=== PATIENT | female | born 1985 | race Caucasian/White ===

== ENCOUNTER 2017-12-12 14:47 | Outpatient (CLI) | payer OTHER ==
[2017-12-12 15:16] VITALS: BP 142/90; PULSE 106; RESP 16; TEMP 98.4
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
== END 2017-12-12 16:00 | disposition home or self-care (01) ==
LOC: FBPOP 14:47
PROVIDERS: ATTEND Obstetrics & Gynecology
DX: O9A.213 Injury, poisoning and certain other consequences of external causes complicating pregnancy, third trimester (principal); S39.92XA Unspecified injury of lower back, initial encounter; Z3A.38 38 weeks gestation of pregnancy
CPT/HCPCS: 59025; G0463; 99213

== ENCOUNTER 2017-12-20 02:50 | Inpatient (IN) | payer OTHER ==
[2017-12-20] MEDS ORDERED: LACTATED RINGERS 1,000 ML IV SCH (03:30)
[2017-12-20] MEDS ORDERED: TERBUTALINE 1 MG/ML VIAL SQ PRN (03:30)
[2017-12-20] MEDS ORDERED: CARBOPROST TROMETHAMINE 250 MCG/ML 1 ML AMP IM PRN (03:30)
[2017-12-20] MEDS ORDERED: METHYLERGONOVINE 0.2 MG/ML 1 ML AMP IM PRN (03:30)
[2017-12-20] MEDS ORDERED: LIDOCAINE 1% (PF) 10 MG/ML (30 ML SDV) SQ PRN (03:30)
[2017-12-20] MEDS ORDERED: OXYTOCIN 10 UNIT/ML 1 ML VIAL IM PRN (03:30)
[2017-12-20] MEDS ORDERED: OXYTOCIN 20 UNITS/1000 ML NS 1,000 ML IV SCH ×2 (03:30→07:22)
[2017-12-20] MEDS ORDERED: AMPICILLIN 2,000 MG in SODIUM CHLORIDE 0.9% 100 ML IVPB STA (03:30)
[2017-12-20 03:48] VITALS: BMI 41.6
--- NOTE | 2017-12-20 04:13 | P.HPOB ---
History of Present Illness H&P Date: 12/20/17 Chief Complaint: Contractions This is a 32-year-old female 4 para 2 with an estimated date of confinement of 12/23/2017, estimated gestational age of 39-4/7 weeks, who presents to labor and delivery with complaints of contractions that became stronger at approximately 12:30 AM. She began having contractions yesterday morning but did not become regular until this morning. care has been with Dr. Rodriguez and has been uncomplicated per patient. She denies any rupture of membranes. labs: Hemoglobin-12.4 Rubella-be positive Antibody screen-negative Rubella-immune Toxoplasma-positive IgG and negative IgM. 1 hour Glucola-79 RPR-nonreactive Obstetrical ultrasound-normal anatomy Group B streptococcus-negative, however positive in previous Obstetrical history: . History of 2 vaginal deliveries at term. She did have polyhydramnios with her last delivery. She also has a history of 1 miscarriage. Review of Systems Constitutional: Denies chills, Denies fever Eyes: denies blurred vision, denies pain Ears, nose, mouth and throat: Denies headache, Denies sore throat Cardiovascular: Denies chest pain, Denies shortness of breath Respiratory: Denies cough Gastrointestinal: Reports abdominal pain (Contractions) Genitourinary: Reports pelvic pain, Reports Musculoskeletal: Reports low back pain Integumentary: Denies pruritus, Denies rash Neurological: Denies numbness, Denies weakness Psychiatric: Denies anxiety, Denies depression Past Medical History Past Medical History: Asthma History of Any Multi-Drug Resistant Organisms: None Reported Additional Past Surgical History / Comment(s): thumb surgery Past Anesthesia/Blood Transfusion Reactions: No Reported Reaction Past Psychological History: No Psychological Hx Reported Smoking Status: Never smoker Past Alcohol Use History: None Reported Past Drug Use History: None Reported - Past Family History Mother Family Medical History: Cancer Medications and Allergies Home Medications Medication Instructions Recorded Confirmed Type Pnv,Calcium 72/Iron/Folic Acid 1 tab PO DAILY 11/04/17 12/20/17 History [ Plus Tablet] Allergies Allergy/AdvReac Type Severity Reaction Status Date / Time gluten Allergy Diarrhea Verified 12/20/17 03:29 Milk Containing Products Allergy Diarrhea Verified 12/20/17 03:29 wheat Allergy Diarrhea Verified 12/20/17 03:29 Exam Osteopathic Statement: *. No significant issues noted on an osteopathic structural exam other than those noted in the History and Physical/Consult. - Vital Signs Vital signs: Vital Signs Temp Pulse Resp BP 12/20/17 03:29 98 F 88 16 143/86 Intake and Output 12/19/17 12/19/17 12/20/17 14:59 22:59 06:59 Other: Weight 106.594 kg Patient Weight 12/20/17 06:59 Weight 106.594 kg HEENT: Within normal limits Heart: Regular rate and rhythm Lungs: Clear to auscultation bilaterally Abdomen: Cervix: Initially in triage was 6 cm/100%/-2. Bulging bag is noted. heart tones: Reactive Contractions: Every 2-5 minutes Extremities: Negative Homans Assessment and Plan (1) 39 weeks gestation of Current Visit: Yes Status: Acute Code(s): Z3A.39 - 39 WEEKS GESTATION OF SNOMED Code(s): 73793670 (2) Group B Streptococcus carrier, +RV culture, currently Current Visit: Yes Status: Acute Code(s): O99.820 - STREPTOCOCCUS B CARRIER STATE COMPLICATING SNOMED Code(s): 3497123266656 Plan: Plan is admission for active labor. Antibiotic prophylaxis secondary to history of group B streptococcus. Expectant management.
[2017-12-20 04:52] LABS: Basophils % (A) 0 %; Eosinophils % (A) 0 %; HCT 41.8 % (34.0-46.0); HGB 13.7 gm/dL (11.4-16.0); Lymphocytes # (A) 1.9 k/uL (1.0-4.8); Lymphocytes % (A) 16 %; MCH 28.9 pg (25.0-35.0); MCHC 32.7 g/dL (31.0-37.0); MCV 88.4 fL (80.0-100.0); Mean Platelet Volume 7.8; Monocytes # (A) 0.5 k/uL (0-1.0); Monocytes % (A) 5 %; Neutrophils # (A) 8.8 k/uL (1.3-7.7); Neutrophils % (A) 77 %; Platelet Count 201 k/uL (150-450); RBC 4.73 m/uL (3.80-5.40); RDW 14.9 % (11.5-15.5); WBC 11.4 k/uL (3.8-10.6)
--- NOTE | 2017-12-20 07:13 | P.PROBDLV ---
Vaginal Delivery Note - . Vaginal Delivery Note: The patient progressed to complete dilation after antibiotic prophylaxis for history of group B streptococcus and artificial rupture of membranes. Almost immediately after artificial rupture of membranes she felt like she had to push. She pushed a couple pushes and 's head came to a crown and then delivered across the perineum in a left occiput anterior lie. She cannot stop pushing and therefore the entire delivered and was placed on mother's abdomen. Nose and mouth were bulb suctioned. The cord was allowed to stop pulsating and then was clamped and cut. was then allowed to do skin to skin with the mom. A viable male infant was noted with scores of 9 at 1 minute and 10 at 5 minutes and infant weight of 8 lbs. 1 oz. Placenta delivered shortly thereafter, intact, with a three-vessel cord. Uterus contracted well after oxytocin was given and uterine massage was carried out. Bladder was drained with a catheter. Inspection of the perineum revealed a left periurethral laceration. This area was anesthetized with 1% lidocaine and sutured with 3-0 Vicryl suture in a running locked fashion. Estimated blood loss is approximately 150 mL. Both mother and infant are in stable condition.
[2017-12-20] MEDS ORDERED: LANOLIN CREAM 5 GM TUBE TOPICAL PRN (07:22)
[2017-12-20] MEDS ORDERED: diphenhydrAMINE 50 MG CAP PO PRN (07:22)
[2017-12-20] MEDS ORDERED: SIMETHICONE 80 MG CHEWABLE PO PRN (07:22)
[2017-12-20] MEDS ORDERED: diphenhydrAMINE 50 MG/ML 1 ML VIAL IVP PRN ×2 (07:22)
[2017-12-20] MEDS ORDERED: HYDROCORTISONE 2.5% RECTAL CREAM 30 GM TUBE RECTAL PRN (07:22)
[2017-12-20] MEDS ORDERED: ACETAMINOPHEN TAB 325 MG TAB PO PRN (07:22)
[2017-12-20] MEDS ORDERED: diphenhydrAMINE 25 MG CAP PO PRN (07:22)
[2017-12-20] MEDS ORDERED: BENZOCAINE/MENTHOL SPRAY 1 GM/SPRAY AEROSOL TOPICAL PRN (07:22)
[2017-12-20] MEDS ORDERED: ZOLPIDEM 5 MG TAB PO PRN (07:22)
[2017-12-20] MEDS ORDERED: WITCH HAZEL 1 EACH MED..PAD TOPICAL PRN (07:22)
[2017-12-20] MEDS ORDERED: AMPICILLIN 1,000 MG in SODIUM CHLORIDE 0.9% 50 ML IVPB SCH (08:00)
[2017-12-20] MEDS: IBUPROFEN 600 MG TAB PO PRN ×2 (09:03→15:53)
[2017-12-20] MEDS: SENNOSIDES-DOCUSATE SODIUM 1 EACH TAB PO SCH ×2 (10:07→19:36)
[2017-12-21] MEDS: IBUPROFEN 600 MG TAB PO PRN (00:06)
[2017-12-21 08:09] LABS: Basophils % (A) 0 %; Eosinophils # (A) 0.1 k/uL (0-0.7); Eosinophils % (A) 1 %; HCT 36.5 % (34.0-46.0); HGB 11.9 gm/dL (11.4-16.0); Lymphocytes # (A) 2.7 k/uL (1.0-4.8); Lymphocytes % (A) 32 %; MCH 28.2 pg (25.0-35.0); MCHC 32.7 g/dL (31.0-37.0); MCV 86.1 fL (80.0-100.0); Mean Platelet Volume 7.9; Monocytes # (A) 0.3 k/uL (0-1.0); Monocytes % (A) 4 %; Neutrophils # (A) 5.2 k/uL (1.3-7.7); Neutrophils % (A) 62 %; Platelet Count 196 k/uL (150-450); RBC 4.24 m/uL (3.80-5.40); WBC 8.5 k/uL (3.8-10.6)
[2017-12-21] MEDS: SENNOSIDES-DOCUSATE SODIUM 1 EACH TAB PO SCH (08:36)
[2017-12-21 09:58] VITALS: BP 118/78; PULSE 75; RESP 15; TEMP 97.3
--- NOTE | 2017-12-21 10:33 | P.DS ---
Providers Date of admission: 12/20/17 03:13 Expected date of discharge: 12/21/17 Attending physician: Mabel Rodriguez Primary care physician: Stated None - Discharge Diagnosis(es) (1) Normal vaginal delivery Current Visit: Yes Status: Acute Hospital Course: Pt presented in active labor. She underwent a normal vaginal delivery. HEr pp course was uncomplicated. She will be discharged home PPD #1 in stable condition to follow up with me in 6 weeks. Plan - Discharge Summary New Discharge Prescriptions: New Ibuprofen [Motrin] 600 mg PO Q6HR PRN #30 tab PRN Reason: Mild Pain Or Fever >= 100.5 No Action Pnv,Calcium 72/Iron/Folic Acid [ Plus Tablet] 1 tab PO DAILY Discharge Medication List Pnv,Calcium 72/Iron/Folic Acid [ Plus Tablet] 1 tab PO DAILY 11/04/17 [ History] Ibuprofen [Motrin] 600 mg PO Q6HR PRN #30 tab 12/21/17 [Rx] Follow up Appointment(s)/Referral(s): Mabel Rodriguez DO [Doctor of Osteopathic Medicine] - 6 Weeks
== END 2017-12-21 13:30 | disposition home or self-care (01) | DRG 775 ==
LOC: FBPOP 02:50 → 4FBP 03:13
PROVIDERS: ADMIT Obstetrics & Gynecology; ATTEND Obstetrics & Gynecology
PROC: 10E0XZZ Delivery of Products of Conception, External Approach (ICD-10-PCS; principal; 2017-12-20)
PROC: 0UQMXZZ Repair Vulva, External Approach (ICD-10-PCS; 2017-12-20)
PROC: 10907ZC Drainage of Amniotic Fluid, Therapeutic from Products of Conception, Via Natural or Artificial Opening (ICD-10-PCS; 2017-12-20)
DX: O99.824 Streptococcus B carrier state complicating childbirth (principal); O71.82 Other specified trauma to perineum and vulva; Z37.0 Single live birth; Z3A.39 39 weeks gestation of pregnancy; Z91.011 Allergy to milk products; Z91.018 Allergy to other foods; Z80.9 Family history of malignant neoplasm, unspecified
CPT/HCPCS: 85025; 88307